=== PATIENT | female | born 1980 | race Caucasian/White ===

== ENCOUNTER 2017-11-08 18:00 | Emergency (ER) | payer MEDICARE, MEDICAID ==
[~2017-11-08] VITALS: Ht 167.6 cm; Wt 59.1 kg
[~2017-11-08 18:00] MED LIST: CYMBALTA60 M1 PO; INSULIN HUMA100 U/ML; LAMICTAL150 MG PO; LANTUS PEN100 U/ML SC; NORCO 325 MG-51 TA1 PO; PRILOSEC 20MG20 MG PO; TOPAMAX50 M1 PO
[2017-11-08] MEDS ORDERED: VANCOMYCIN 11 G/VIAL IV (18:29)
[2017-11-08] MEDS ORDERED: MAXIPIME IV (18:30)
[2017-11-08 18:56] LABS: BASO # 0.1 (0.02-0.10); EOS # 0.3 (0.04-0.40); EOS % 2.1 % (1.0-5.0); HEMATOCRIT 33.4 % (37.0-47.0); HEMOGLOBIN 10.8 g/dL (12.5-16.0); LYMPH# 1.6 (1.50-4.00); MEAN CELL VOLUME 93 fl (78-100); MEAN CORPUSCULAR HEMOGLOBIN 30 pg (27-31); MEAN CORPUSCULAR HGB CONC 32 g/dL (33-37); MEAN PLATELET VOLUME 9.4 fl (7.4-10.4); MONO # 0.7 (0.20-0.80); PLATELET COUNT 361 K/mm3 (130-400); RED BLOOD COUNT 3.58 M/mm3 (4.10-5.30); RED CELL DISTRIBUTION WIDTH 12.9 % (11.5-14.5); WHITE BLOOD COUNT 11.8 K/mm3 (4.8-10.8)
[2017-11-08 19:05] LABS: BUN/CREATININE RATIO 33.8 (6.0-26.0); POTASSIUM 4.1 mmol/L (3.6-5.0)
[2017-11-08 19:09] LABS: NEU # 9.1 (1.40-6.50)
[2017-11-08 20:15] VITALS: BP 107/63
[2017-11-08] MEDS ORDERED: ZOFRAN ODT4 MG PO (20:22)
== END 2017-11-08 20:15 | disposition home or self-care (01) ==
LOC: ED 18:00
PROVIDERS: Nurse Practitioner Primary Care
DX: G43.909 Migraine, unspecified, not intractable, without status migrainosus (principal); E10.40 Type 1 diabetes mellitus with diabetic neuropathy, unspecified; Z79.4 Long term (current) use of insulin; F17.200 Nicotine dependence, unspecified, uncomplicated; I10 Essential (primary) hypertension; F15.11 Other stimulant abuse, in remission; F32.9 Major depressive disorder, single episode, unspecified; F41.9 Anxiety disorder, unspecified
CPT/HCPCS: J1200; J2405; J7120

== ENCOUNTER → 2017-11-09 | Outpatient (CLI) | payer MEDICARE, MEDICAID ==
[2017-11-08 21:45] VITALS: BP 105/68
[~2017-11-09] MED LIST changes: +MAXIPIME IV; +VANCOMYCIN 11 G/VIAL IV; +ZOFRAN ODT4 MG PO
== END ==
LOC: LAB 08:56
DX: Z01.89 Encounter for other specified special examinations (principal)

== ENCOUNTER → 2017-11-11 | Outpatient (CLI) | payer MEDICARE, MEDICAID ==
[2017-11-10 21:21] VITALS: BP 107/74
[~2017-11-11] MED LIST changes: +DIFLUCAN150 M1 PO; +FLAGYL500 M1 PO; +PERCOCET 325 MG1 TA5 PO
== END ==
LOC: LAB 08:16
DX: Z01.89 Encounter for other specified special examinations (principal)

== ENCOUNTER → 2017-11-13 | Outpatient (CLI) | payer MEDICARE, MEDICAID ==
[2017-11-12 22:05] VITALS: BP 154/74
[~2017-11-13] MED LIST changes: -DIFLUCAN150 M1 PO; -FLAGYL500 M1 PO; -PERCOCET 325 MG1 TA5 PO
[2017-11-13 09:24] LABS: HEMATOCRIT 34.7 % (37.0-47.0); HEMOGLOBIN 11.1 g/dL (12.5-16.0); MEAN PLATELET VOLUME 9.5 fl (7.4-10.4); RED BLOOD COUNT 3.68 M/mm3 (4.10-5.30); RED CELL DISTRIBUTION WIDTH 13.8 % (11.5-14.5); WHITE BLOOD COUNT 8.3 K/mm3 (4.8-10.8)
[2017-11-13 09:37] LABS: ALBUMIN 3.7 g/dL (3.5-5.0); BUN/CREATININE RATIO 22.4 (6.0-26.0); CALCIUM 9.1 mg/dL (8.4-10.2); POTASSIUM 4.6 mmol/L (3.6-5.0); TOTAL BILIRUBIN 0.4 mg/dL (0.2-1.3); TOTAL PROTEIN 7.7 g/dL (6.3-8.2)
== END ==
LOC: LAB 11-07 08:16
PROVIDERS: Internal Medicine Infectious Disease
DX: M86.9 Osteomyelitis, unspecified (principal)

== ENCOUNTER → 2017-11-16 | Outpatient (CLI) | payer MEDICARE, MEDICAID ==
[2017-11-15 22:15] VITALS: BP 146/104
[~2017-11-16] MED LIST changes: +DIFLUCAN150 M1 PO; +FLAGYL500 M1 PO; +PERCOCET 325 MG1 TA5 PO
== END ==
LOC: LAB 08:42
DX: Z01.89 Encounter for other specified special examinations (principal)

== ENCOUNTER → 2017-11-20 | Outpatient (CLI) | payer MEDICARE, MEDICAID ==
[2017-11-19 22:12] VITALS: BP 113/85
[~2017-11-20] MED LIST changes: -DIFLUCAN150 M1 PO; -FLAGYL500 M1 PO; -PERCOCET 325 MG1 TA5 PO
[2017-11-20 10:54] LABS: HEMATOCRIT 32.8 % (37.0-47.0); HEMOGLOBIN 10.4 g/dL (12.5-16.0); MEAN PLATELET VOLUME 10.5 fl (7.4-10.4); RED BLOOD COUNT 3.55 M/mm3 (4.10-5.30); RED CELL DISTRIBUTION WIDTH 13.2 % (11.5-14.5); WHITE BLOOD COUNT 7.4 K/mm3 (4.8-10.8)
[2017-11-20 11:01] LABS: ALBUMIN 3.5 g/dL (3.5-5.0); BUN/CREATININE RATIO 28.3 (6.0-26.0); CALCIUM 8.7 mg/dL (8.4-10.2); POTASSIUM 4.7 mmol/L (3.6-5.0); TOTAL BILIRUBIN 0.2 mg/dL (0.2-1.3); TOTAL PROTEIN 6.9 g/dL (6.3-8.2)
== END ==
LOC: LAB 10:23
PROVIDERS: Internal Medicine Infectious Disease
DX: M86.9 Osteomyelitis, unspecified (principal)

== ENCOUNTER → 2017-11-22 | Outpatient (CLI) | payer MEDICARE, MEDICAID ==
[2017-11-21 21:45] VITALS: BP 114/81
[~2017-11-22] MED LIST changes: +DIFLUCAN150 M1 PO; +FLAGYL500 M1 PO; +PERCOCET 325 MG1 TA5 PO
== END ==
LOC: LAB 08:22
DX: Z01.89 Encounter for other specified special examinations (principal)

== ENCOUNTER 2017-11-27 16:14 | Emergency (ER) | payer MEDICARE, MEDICAID ==
[~2017-11-27] VITALS: Ht 167.6 cm; Wt 59.1 kg
[~2017-11-27 16:14] MED LIST changes: -DIFLUCAN150 M1 PO; -FLAGYL500 M1 PO; -PERCOCET 325 MG1 TA5 PO
[2017-11-27] MEDS ORDERED: PERCOCET 325 MG1 TA5 PO (17:17)
[2017-11-27 17:24] LABS: BASO # 0.1 (0.02-0.10); EOS # 0.5 (0.04-0.40); EOS % 5.9 % (1.0-5.0); HEMOGLOBIN 10.9 g/dL (12.5-16.0); LYMPH# 1.7 (1.50-4.00); MEAN CELL VOLUME 91 fl (78-100); MEAN CORPUSCULAR HEMOGLOBIN 30 pg (27-31); MEAN CORPUSCULAR HGB CONC 33 g/dL (33-37); MEAN PLATELET VOLUME 10.5 fl (7.4-10.4); MONO # 0.8 (0.20-0.80); NEU # 4.6 (1.40-6.50); PLATELET COUNT 219 K/mm3 (130-400); RED BLOOD COUNT 3.64 M/mm3 (4.10-5.30); RED CELL DISTRIBUTION WIDTH 13.3 % (11.5-14.5); WHITE BLOOD COUNT 7.7 K/mm3 (4.8-10.8)
[2017-11-27 17:41] LABS: ALBUMIN 3.6 g/dL (3.5-5.0); BUN/CREATININE RATIO 23.2 (6.0-26.0); POTASSIUM 4.6 mmol/L (3.6-5.0); TOTAL BILIRUBIN 0.2 mg/dL (0.2-1.3)
[2017-11-27 18:01] LABS: URINE APPEARANCE CLEAR; URINE BILIRUBIN NEGATIVE (NEGATIVE); URINE COLOR YELLOW; URINE KETONE NEGATIVE (NEGATIVE); URINE NITRATE NEGATIVE (NEGATIVE); URINE PROTEIN(semi-quant) 1+ mg/dL (NEGATIVE); URINE UROBILINOGEN NORMAL (NORMAL)
[2017-11-27 18:02] LABS: URINE BLOOD TRACE (NEGATIVE); URINE LEUKOCYTE ESTERASE 1+ (NEGATIVE)
[2017-11-27] MEDS ORDERED: FLAGYL500 M1 PO (18:20)
[2017-11-27] MEDS ORDERED: DIFLUCAN150 M1 PO (18:42)
[2017-11-27 18:52] VITALS: BP 126/87
== END 2017-11-27 18:52 | disposition home or self-care (01) ==
LOC: ED 16:14
PROVIDERS: Nurse Practitioner Primary Care
DX: A59.03 Trichomonal cystitis and urethritis (principal); Z79.4 Long term (current) use of insulin; M86.9 Osteomyelitis, unspecified; R73.9 Hyperglycemia, unspecified
CPT/HCPCS: J7030

== ENCOUNTER → 2017-11-27 | Outpatient (CLI) | payer MEDICARE, MEDICAID ==
[2017-11-26 21:51] VITALS: BP 117/76
[2017-11-27 11:04] LABS: HEMATOCRIT 36.7 % (37.0-47.0); HEMOGLOBIN 11.9 g/dL (12.5-16.0); MEAN PLATELET VOLUME 10.5 fl (7.4-10.4); RED BLOOD COUNT 4.05 M/mm3 (4.10-5.30); RED CELL DISTRIBUTION WIDTH 13.3 % (11.5-14.5); WHITE BLOOD COUNT 8.6 K/mm3 (4.8-10.8)
[2017-11-27 11:19] LABS: ALBUMIN 3.8 g/dL (3.5-5.0); BUN/CREATININE RATIO 23.9 (6.0-26.0); CALCIUM 9.1 mg/dL (8.4-10.2); TOTAL BILIRUBIN 0.2 mg/dL (0.2-1.3); TOTAL PROTEIN 7.5 g/dL (6.3-8.2)
[2017-11-27 11:25] LABS: POTASSIUM 6.4 mmol/L (3.6-5.0)
== END ==
LOC: LAB 09:00
PROVIDERS: Internal Medicine Infectious Disease
DX: M86.9 Osteomyelitis, unspecified (principal)

== ENCOUNTER → 2017-11-29 | Outpatient (CLI) | payer MEDICARE, MEDICAID ==
[2017-11-28 22:12] VITALS: BP 134/90
[~2017-11-29] MED LIST changes: +DIFLUCAN150 M1 PO; +FLAGYL500 M1 PO; +PERCOCET 325 MG1 TA5 PO
== END ==
LOC: LAB 08:54
DX: Z51.81 Encounter for therapeutic drug level monitoring (principal); Z79.2 Long term (current) use of antibiotics

== ENCOUNTER → 2017-12-04 | Outpatient (CLI) | payer MEDICARE, MEDICAID ==
[2017-12-03 22:00] VITALS: BP 128/90
[2017-12-04 09:44] LABS: HEMATOCRIT 36.1 % (37.0-47.0); HEMOGLOBIN 11.8 g/dL (12.5-16.0); MEAN PLATELET VOLUME 9.9 fl (7.4-10.4); RED BLOOD COUNT 3.93 M/mm3 (4.10-5.30); RED CELL DISTRIBUTION WIDTH 13.3 % (11.5-14.5); WHITE BLOOD COUNT 6.2 K/mm3 (4.8-10.8)
[2017-12-04 10:05] LABS: ALBUMIN 3.7 g/dL (3.5-5.0); CALCIUM 9.4 mg/dL (8.4-10.2); POTASSIUM 3.7 mmol/L (3.6-5.0); TOTAL BILIRUBIN 0.4 mg/dL (0.2-1.3)
== END ==
LOC: LAB 09:32
PROVIDERS: Internal Medicine Infectious Disease
DX: M86.9 Osteomyelitis, unspecified (principal)

== ENCOUNTER → 2017-12-06 | Outpatient (CLI) | payer MEDICARE, MEDICAID ==
[2017-12-05 21:52] VITALS: BP 91/69
--- NOTE | 2017-12-06 10:57 | NUR ---
CATH [facility]RISTINE DID NOT PRODUCE BLOOD RETURN AFTER 30 MIN. LINE WAS FLUSHED THEREFOR UNABLE TO WAIT AND LET CATH CHRISTINE WORK LONGER. JESSICA IN IV SERVICES CONSULTED FOR FURTHER DIRECTION AND ASSISTANCE REGARDING USE OF PICC LINE WITH NO BLOOD RETURN. PICC LINE WAS VERIFIED WITH X RAY THAT IT IS IN THE CORRECT LOCATION. JESSICA ADVISED THAT IT WAS OK TO USE FOR TODAY AND TONIGHT AND TO REPEAT CATH CHRISTINE IN THE AM. PT AND ANAMARIA HARRIS UPDATED
== END ==
LOC: LAB 08:42
DX: Z01.89 Encounter for other specified special examinations (principal)

== ENCOUNTER → 2017-12-09 | Outpatient (CLI) | payer MEDICARE, MEDICAID ==
[2017-12-08 22:14] VITALS: BP 159/106
== END ==
LOC: LAB 08:22
DX: Z01.89 Encounter for other specified special examinations (principal)

== ENCOUNTER → 2017-12-11 | Outpatient (CLI) | payer MEDICARE, MEDICAID ==
[2017-12-10 21:45] VITALS: BP 133/87
[2017-12-11 09:49] LABS: HEMATOCRIT 35.8 % (37.0-47.0); HEMOGLOBIN 11.6 g/dL (12.5-16.0); MEAN PLATELET VOLUME 10.8 fl (7.4-10.4); RED BLOOD COUNT 3.87 M/mm3 (4.10-5.30); RED CELL DISTRIBUTION WIDTH 13.2 % (11.5-14.5); WHITE BLOOD COUNT 6.9 K/mm3 (4.8-10.8)
[2017-12-11 12:41] LABS: ALBUMIN 3.4 g/dL (3.5-5.0); CALCIUM 8.8 mg/dL (8.4-10.2); POTASSIUM 4.3 mmol/L (3.6-5.0); TOTAL BILIRUBIN 0.6 mg/dL (0.2-1.3); TOTAL PROTEIN 6.8 g/dL (6.3-8.2)
[2017-12-11 12:44] LABS: BUN/CREATININE RATIO 20.5 (6.0-26.0)
== END ==
LOC: LAB 08:40
PROVIDERS: Internal Medicine Infectious Disease
DX: M86.9 Osteomyelitis, unspecified (principal)

== ENCOUNTER → 2017-12-14 | Outpatient (CLI) | payer MEDICARE, MEDICAID ==
[2017-12-13 21:48] VITALS: BP 129/101
[~2017-12-14] MED LIST changes: +HYDROXYZINE HCL25 M1 PO; +ZESTRIL5 M1 PO
== END ==
LOC: LAB 08:15
DX: E11.69 Type 2 diabetes mellitus with other specified complication (principal); M86.9 Osteomyelitis, unspecified; E11.65 Type 2 diabetes mellitus with hyperglycemia; Z79.4 Long term (current) use of insulin

== ENCOUNTER → 2017-12-18 | Outpatient (CLI) | payer MEDICARE, MEDICAID ==
[2017-12-17 21:41] VITALS: BP 104/73
[2017-12-18 10:25] LABS: HEMATOCRIT 31.9 % (37.0-47.0); HEMOGLOBIN 10.3 g/dL (12.5-16.0); MEAN PLATELET VOLUME 11.7 fl (7.4-10.4); RED BLOOD COUNT 3.5 M/mm3 (4.10-5.30); RED CELL DISTRIBUTION WIDTH 12.7 % (11.5-14.5)
[2017-12-18 10:32] LABS: ALBUMIN 3.6 g/dL (3.5-5.0); BUN/CREATININE RATIO 16.7 (6.0-26.0); CALCIUM 9.1 mg/dL (8.4-10.2); POTASSIUM 4.8 mmol/L (3.6-5.0); TOTAL BILIRUBIN 0.5 mg/dL (0.2-1.3); TOTAL PROTEIN 6.8 g/dL (6.3-8.2)
== END ==
LOC: LAB 09:03
PROVIDERS: Internal Medicine Infectious Disease
DX: M86.9 Osteomyelitis, unspecified (principal)

== ENCOUNTER 2018-01-28 20:29 | Emergency (ER) | payer MEDICARE, MEDICAID ==
[2018-01-28 22:35] VITALS: BP 117/82
[2018-01-29] MEDS ORDERED: PHENERGAN 25 TA25 MG PO (17:48)
[2018-01-29] MEDS ORDERED: AUGMENTIN 875-1 EAC1 PO (17:49)
== END 2018-01-28 22:48 | disposition home or self-care (01) ==
LOC: ED 20:29
DX: R51 Headache (principal); R11.10 Vomiting, unspecified; S00.12XA Contusion of left eyelid and periocular area, initial encounter; W01.190A Fall on same level from slipping, tripping and stumbling with subsequent striking against furniture, initial encounter; E10.319 Type 1 diabetes mellitus with unspecified diabetic retinopathy without macular edema; E10.42 Type 1 diabetes mellitus with diabetic polyneuropathy; E10.21 Type 1 diabetes mellitus with diabetic nephropathy; Z79.4 Long term (current) use of insulin; H54.62 Unqualified visual loss, left eye, normal vision right eye
CPT/HCPCS: J0595; J2060; J2405; J7030

== ENCOUNTER 2018-01-29 16:28 | Emergency (ER) | payer MEDICARE, MEDICAID ==
[~2018-01-29] VITALS: Ht 167.6 cm; Wt 56.8 kg
[2018-01-29] MEDS ORDERED: PHENERGAN 25 TA25 MG PO (17:48)
[2018-01-29] MEDS ORDERED: AUGMENTIN 875-1 EAC1 PO (17:49)
[2018-01-29 18:20] VITALS: BP 115/86
== END 2018-01-29 18:09 | disposition home or self-care (01) ==
LOC: ED 16:28
DX: S02.32XA Fracture of orbital floor, left side, initial encounter for closed fracture (principal); S02.19XA Other fracture of base of skull, initial encounter for closed fracture; F07.81 Postconcussional syndrome; W01.0XXA Fall on same level from slipping, tripping and stumbling without subsequent striking against object, initial encounter; Y92.009 Unspecified place in unspecified non-institutional (private) residence as the place of occurrence of the external cause; E10.9 Type 1 diabetes mellitus without complications; Z79.4 Long term (current) use of insulin; Z79.899 Other long term (current) drug therapy; H54.62 Unqualified visual loss, left eye, normal vision right eye; F17.200 Nicotine dependence, unspecified, uncomplicated
CPT/HCPCS: J2550

== ENCOUNTER 2018-04-05 13:27 | Emergency (ER) | payer MEDICARE, MEDICAID ==
[~2018-04-05] VITALS: Ht 170.2 cm; Wt 58.2 kg
[~2018-04-05 13:27] MED LIST changes: +AUGMENTIN 875-1 EAC1 PO; +PHENERGAN 25 TA25 MG PO
[2018-04-05] MEDS ORDERED: NORTRIPTYLINE H25 M1 PO (13:38)
[2018-04-05 14:16] LABS: URINE APPEARANCE CLEAR; URINE COLOR YELLOW
[2018-04-05 14:17] LABS: URINE BILIRUBIN NEGATIVE (NEGATIVE); URINE BLOOD NEGATIVE (NEGATIVE); URINE KETONE NEGATIVE (NEGATIVE); URINE LEUKOCYTE ESTERASE NEGATIVE (NEGATIVE); URINE NITRATE NEGATIVE (NEGATIVE); URINE PROTEIN(semi-quant) 1+ mg/dL (NEGATIVE); URINE UROBILINOGEN NORMAL (NORMAL); URINE WBC 0-1 /hpf (0-3)
[2018-04-05 14:34] VITALS: BP 109/74
== END 2018-04-05 14:34 | disposition home or self-care (01) ==
LOC: ED 13:27
PROVIDERS: Nurse Practitioner Primary Care
DX: S30.0XXA Contusion of lower back and pelvis, initial encounter (principal); W10.9XXA Fall (on) (from) unspecified stairs and steps, initial encounter; F17.200 Nicotine dependence, unspecified, uncomplicated

== ENCOUNTER → 2020-04-13 | Outpatient (CLI) | payer MEDICARE, MEDICAID ==
[2020-04-12 20:50] VITALS: BP 179/114
[~2020-04-13] MED LIST changes: +ABILIFY5 MG PO; +NORTRIPTYLINE H25 M1 PO
[2020-04-13 09:28] LABS: ALBUMIN 3.1 g/dL (3.5-5.0); POTASSIUM 4.6 mmol/L (3.5-5.1)
[2020-04-13 09:31] LABS: HEMATOCRIT 32.4 % (37.0-47.0); HEMOGLOBIN 10.3 g/dL (12.5-16.0); MEAN PLATELET VOLUME 9.6 fl (7.4-10.4); RED BLOOD COUNT 3.64 M/mm3 (4.10-5.30); RED CELL DISTRIBUTION WIDTH 14.6 % (11.5-14.5); WHITE BLOOD COUNT 6.6 K/mm3 (4.8-10.8)
[2020-04-13 09:32] LABS: TOTAL BILIRUBIN 0.2 mg/dL (0.2-1.2)
== END ==
LOC: LAB 09:00
DX: Z51.81 Encounter for therapeutic drug level monitoring (principal)

== ENCOUNTER 2020-04-15 20:54 | Outpatient (RCR) | payer MEDICARE, MEDICAID ==
[2020-04-10 21:21] VITALS: BP 162/102
[2020-04-10 22:05] VITALS: BP 116/85
[2020-04-11 09:00] VITALS: BP 103/68
[2020-04-11 21:00] VITALS: BP 124/70
[2020-04-11 21:14] VITALS: BP 132/80
[2020-04-12 09:10] VITALS: BP 139/95
[2020-04-12 20:50] VITALS: BP 179/114
[2020-04-13 09:00] VITALS: BP 127/99
[2020-04-13 21:01] VITALS: BP 131/81
[2020-04-14 09:30] VITALS: BP 117/105
[2020-04-14 21:13] VITALS: BP 134/94
[~2020-04-15] VITALS: Ht 170.2 cm; Wt 53.2 kg
[2020-04-15 09:39] VITALS: BP 128/79
[2020-04-15 21:10] VITALS: BP 127/94
== END 2020-04-15 21:30 | disposition still patient (30) ==
LOC: AMSURD 20:54
DX: M86.172 Other acute osteomyelitis, left ankle and foot (principal)
CPT/HCPCS: J0692

== ENCOUNTER 2020-04-19 21:03 | Outpatient (RCR) | payer MEDICARE, MEDICAID ==
[2020-04-16 09:45] VITALS: BP 147/95
[2020-04-16 21:37] VITALS: BP 159/98
[2020-04-17 12:27] VITALS: BP 130/76
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
[2020-04-17 20:50] VITALS: BP 153/92
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
[2020-04-18 09:30] VITALS: BP 167/105
[2020-04-18 21:14] VITALS: BP 160/102
[~2020-04-19] VITALS: Ht 170.2 cm; Wt 53.2 kg
[2020-04-19 09:01] VITALS: BP 125/79
--- NOTE | 2020-04-19 09:09 | NUR ---
TEGADERM PLACED OVER DUEL LUMEN PICC INTAKE BUT SOME OF THE ORIGINAL DRESSING PULLED UP WHEN REMOVING THE TEGADERM AND REDNESS NOTED TO ARM. IV PUSH ANTIBIOTIC GIVEN AND LINES FLUSHED WELL WITH SALINE PRIOR TO AND POST ANTIBIOTIC DOSE. NO ADDITIONAL TEGADERM APPLIED DUE TO SKIN IRRITATION AND DRESSING OVER INSERTION SITE TO BE INTACT.
[2020-04-19 21:11] VITALS: BP 148/96
--- NOTE | 2020-04-20 08:13 | NUR ---
Nurse from [facility] calls to report that patient is hospitalized there and will not be here today for infusions
== END 2020-07-15 | disposition home or self-care (01) ==
LOC: AMSURD
DX: M86.8X8 Other osteomyelitis, other site (principal)
CPT/HCPCS: J0692